=== PATIENT | male | born 1990 | race Asian ===

== ENCOUNTER 2017-10-16 19:10 | Emergency (ER) | payer OTHER ==
[~2017-10-16] VITALS: Ht 190.5 cm; Wt 190.1 kg
[2017-10-16 20:31] VITALS: BP 169/105; TEMP 97.1
== END 2017-10-16 20:31 | disposition home or self-care (01) ==
LOC: EDSEX 19:10 → ED 19:10
DX: J45.901 Unspecified asthma with (acute) exacerbation (principal)
CPT/HCPCS: 94664; 96372; 99283; J2930